=== PATIENT | female | born 1965 | race Caucasian/White ===

== ENCOUNTER 2016-06-29 03:41 | Emergency (ER) | payer BC ==
[2016-06-29] MEDS ORDERED: DEXAMETHASONE SOD PHOS INJ 10 MG/1 ML VIAL IM ONE (05:24)
[2016-06-29] MEDS ORDERED: CLINDAMYCIN HCL 150 MG CAPSULE PO ONE (05:24)
[2016-06-29] MEDS ORDERED: HYDROCODONE/ACETAMINOPHEN 5-325 MG 6 TAB/DSPK PO PRN (05:24)
--- NOTE | 2016-06-29 05:35 | ER Document Report ---
ED General - General Chief Complaint: Toothache Stated Complaint: TOOTHACHE Time Seen by Provider: 06/29/16 05:16 Notes: Patient is a pleasant 51-year-old female who presents with complaint of right jaw pain and dental pain. She had a dental abscess in the left side few weeks ago. She is placed on amoxicillin and had tooth pulled. She now has pain and swelling on the right side. She says today she developed some swelling over the right jaw. She cannot went to call her dentist in the morning and therefore she came to the ER due to increasing pain. No difficulty opening or closing her mouth. No difficulty breathing or swallowing. She also complains of a sore spot on her nose. She says it is been bothering her now for several days. TRAVEL OUTSIDE OF THE [place] IN LAST 30 DAYS: No - Related Data Allergies/Adverse Reactions: No Known Allergies Allergy (Verified 06/29/16 03:48) Past Medical History - Social History Smoking Status: Unknown if Ever Smoked Frequency of alcohol use: None Drug Abuse: None Family History: Reviewed & Not Pertinent Patient has suicidal ideation: No Patient has homicidal ideation: No Renal/ Medical History: Denies: Hx Peritoneal Dialysis - Immunizations Hx Diphtheria, Pertussis, Tetanus Vaccination: Yes Review of Systems - Review of Systems Notes: My Normal Review Basic REVIEW OF SYSTEMS: CONSTITUTIONAL : Denies fever, chills, or sweats. Denies recent illness. EENT: Dental pain. Swelling over right jaw. CARDIOVASCULAR: Denies chest pain. RESPIRATORY: Denies cough, cold, or chest congestion. Denies shortness of breath, difficulty breathing, or wheezing. SKIN: Denies rash or skin lesions. NEUROLOGICAL: Denies altered mental status or loss of consciousness. Denies headache. Denies weakness or paralysis or loss of use of either side. Denies problems with gait or speech. Denies sensory or motor loss. ALL OTHER SYSTEMS REVIEWED AND NEGATIVE. Physical Exam - Vital signs Vitals: Temp Pulse Resp BP Pulse Ox 97.9 F 69 20 126/65 H 97 06/29/16 03:47 06/29/16 03:47 06/29/16 03:47 06/29/16 03:47 06/29/16 03:47 - Notes Notes: General Appearance: Well nourished, alert, cooperative, no acute distress, moderate obvious discomfort. Tearful Vitals: reviewed, See vital signs table. Head: no swelling or tenderness to the head Eyes: PERRL, EOMI, Conjuctiva clear Mouth: Patient has what appears to be infected right lower molar. She has some swelling just lateral to the right jaw. There is no swelling below the jaw. She is able to fully open and close her mouth without difficulty. Nose: Small 1 mm open abscess on the medial aspect of the left nare. Appears that this was initially small abscess which is since opened and drained. Some crusting around the area. Throat: No tonsillar inflammation, No airway obstruction, No lymphadenopathy Neck: Supple, no neck tenderness Extremities: strength 5/5 in all extremities, good pulses in all extremities, no swelling or tenderness in the extremities, no edema. Skin: warm, dry, appropriate color, no rash Neuro: speech clear, oriented x 3, normal affect, responds appropriately to questions. Course - Vital Signs Vital signs: Temp Pulse Resp BP Pulse Ox 97.9 F 69 20 126/65 H 97 06/29/16 03:47 06/29/16 03:47 06/29/16 03:47 06/29/16 03:47 06/29/16 03:47 - Transfer of Care Notes: 06/29/16 05:36 Patient has obvious dental abscess. She is swelling along the right mandible that does not extend below the mandible. No evidence of airway compromise. No swelling over the neck. I informed patient she did see a oral surgeon as soon as possible. I have given the number to Dr. hughes. She does have a dentist who she said she would also call in the morning. I informed her that she must return to the ER immediately if she has difficulty opening her mouth, any swelling below the jaw, any difficulty breathing or swallowing, fevers, or she feels the swelling is increasing. Patient agrees with plan and will be discharged home. The small abscess on the medial aspect of the left nose area open and appears to large drain. Clindamycin will help cover against strep or staph. No further treatment needed other than antibiotic at this time. Patient encouraged to return to ER if she has increased swelling in her nose. Dictation of this chart was performed using voice recognition software; therefore, there may be some unintended grammatical errors. 06/29/16 05:38 06/29/16 05:41 Discharge - Discharge Clinical Impression: Dental abscess Condition: Good Disposition: HOME, SELF-CARE Additional Instructions: Dental Infection or Abscess You have an infection, perhaps an abscess (pus formation) of the gum around one of your teeth, which is probably decayed. If there is an abscess, it may drain on its own or it may need to be opened or lanced. Severe swelling or drainage around a tooth usually means a deep dental abscess which usually requires evaluation and treatment by a dentist or oral surgeon. Antibiotics may be prescribed while awaiting dental treatment. If you develop high fever with chills, worsening pain, or increasing swelling in the area, see a dentist or oral surgeon immediately or return to the Emergency Department immediately. Please return to the ER immediately if you have increased swelling, fevers, any swelling below the jaw, difficulty breathing, or if you have difficulty opening your mouth. Please call your dentist or Dr. Hughes (oral surgeon) this am for close follow up. Prescriptions: Clindamycin HCl 300 mg PO ASDIR #56 capsule Hydrocodone/Acetaminophen [[place] 5-325 mg Tablet] 1 tab PO Q4 PRN #12 tablet PRN Reason: For [facility] Pain Forms: Return to Work Referrals: ELIO HUGHES DDS [ACTIVE STAFF] - 06/29/16
[2016-06-29 05:51] VITALS: BP 108/60
== END 2016-06-29 05:43 | disposition home or self-care (01) ==
LOC: ER 03:41
DX: K04.7 Periapical abscess without sinus (principal); R68.84 Jaw pain
CPT/HCPCS: 99282; 96372; J1100

== ENCOUNTER 2017-04-06 06:29 | Emergency (ER) | payer BC ==
[2017-04-06 07:47] LABS: APPEARANCE,URINE SLIGHTLY-CLOUDY; BILIRUBIN,URINE NEGATIVE (NEGATIVE); GLUCOSE, URINE NEGATIVE (NEGATIVE); KETONES,URINE 20 mg/dL (NEGATIVE); LEUKOCYTE ESTERASE,URINE MODERATE (NEGATIVE); NITRITE,URINE NEGATIVE (NEGATIVE); PROTEIN,URINE 30 mg/dL (NEGATIVE); URINE SPECIFIC GRAVITY 1.025
[2017-04-06 07:48] LABS: COLOR,URINE YELLOW
[2017-04-06 08:10] LABS: URINE AMPHETAMINES SCREEN UNCONFIRMED POSITIVE; URINE BARBITURATES SCREEN NEGATIVE; URINE BENZODIAZEPINES SCREEN NEGATIVE; URINE COCAINE SCREEN NEGATIVE; URINE MARIJUANA (THC) SCREEN UNCONFIRMED POSITIVE; URINE METHADONE SCREEN NEGATIVE; URINE PHENCYCLIDINE SCREEN NEGATIVE
[2017-04-06] MEDS ORDERED: LORAZEPAM INJ 2 MG/1 ML VIAL IM ONE (08:35)
--- NOTE | 2017-04-06 09:45 | ER Document Report ---
ED General - General Chief Complaint: Anxiety Stated Complaint: ANXIETY Time Seen by Provider: 04/06/17 07:02 Mode of Arrival: Medic Information source: Patient Notes: 52 years old female presents today with acute anxiety, hyperventilating saying the whole body was aching having some cough largely nonproductive. No fever chills or other constitutional symptoms. TRAVEL OUTSIDE OF THE [place] IN LAST 30 DAYS: No - HPI Onset: Last week Onset/Duration: Gradual Severity: Moderate Context: Her primary care physician has stopped giving her Xanax couple of weeks ago. States that she is having withdrawal symptoms - Related Data Allergies/Adverse Reactions: No Known Allergies Allergy (Verified 06/29/16 03:48) Past Medical History - General Information source: Patient - Social History Smoking Status: Current Every Day Smoker Cigarette use (# per day): Yes Chew tobacco use (# tins/day): Yes Frequency of alcohol use: Occasional Drug Abuse: Marijuana, Methamphetamine Lives with: Alone Family History: Reviewed & Not Pertinent Patient has suicidal ideation: No Patient has homicidal ideation: No Renal/ Medical History: Denies: Hx Peritoneal Dialysis - Immunizations Hx Diphtheria, Pertussis, Tetanus Vaccination: Yes Review of Systems - Review of Systems Constitutional: denies: No symptoms reported, See HPI, Chills, Diaphoresis, Fever, Malaise, Weakness, Other, Weight gain, Weight loss, Recent illness EENT: denies: No symptoms reported, See HPI, Eye pain, Eye discharge, Blurred vision, Tearing, Double vision, Ear pain, Ear discharge, Nose pain, Nose congestion, Nose discharge, Sinus pressure, Sinus discharge, Throat pain, Difficulty swallowing, Throat swelling, Mouth pain, Mouth swelling, Dental problem, Vertigo, Other Cardiovascular: denies: No symptoms reported, See HPI, Chest pain, Palpitations , Heart racing, Orthopnea, Dyspnea, Syncope, Dizziness, Lightheaded, Edema, Other, Paroxysmal Nocturnal Dysp Respiratory: Cough. denies: No symptoms reported, See HPI, Hurts to breathe, Hemoptysis, Short of breath, Sputum, Stridor, Wheezing, Other Gastrointestinal: denies: No symptoms reported, See HPI, Abdomen distended, Abdominal pain, Diarrhea, Nausea, Vomiting, Constipation, Blood streaked bowels , Poor appetite, Poor fluid intake, Blood in vomit, Black stools, Rectal bleeding, Last bowel movement, Fecal incontinence, Other Genitourinary: denies: No symptoms reported, See HPI, Burning, Dysuria, Discharge, Frequency, Flank pain, Hematuria, Incontinence, Pain, Urgency, Retention, Other Musculoskeletal: denies: No symptoms reported, See HPI, Back pain, Gout, Joint pain, Joint swelling, Muscle pain, Muscle stiffness, Neck pain, Deformity, Leg swelling, Ankle swelling, Other Skin: denies: No symptoms reported, See HPI, Change in color, Change in hair/ nails, Dryness, Lesions, Lumps, Rash, Other Hematologic/Lymphatic: denies: No symptoms reported, See HPI, Anemia, Blood clots, Easy bleeding, Easy bruising, Enlarged lymph nodes, Swollen glands, Other Physical Exam - Vital signs Vitals: Temp Pulse Resp BP Pulse Ox 97.7 F 73 30 H 126/51 H 100 04/06/17 06:36 04/06/17 06:36 04/06/17 06:36 04/06/17 06:36 04/06/17 06:36 - Notes Notes: PHYSICAL EXAMINATION: GENERAL: Well-appearing, well-nourished and she is sleeping comfortably before I went into the room, on arrival she was hyperventilating and saying I am going to withdrawal and having pain throughout the body. HEAD: Atraumatic, normocephalic. EYES: Pupils equal round and reactive to light, extraocular movements intact, conjunctiva are normal. ENT: Nares patent, oropharynx clear without exudates. Moist mucous membranes. NECK: Normal range of motion, supple without lymphadenopathy LUNGS: Breath sounds clear to auscultation bilaterally and equal. No wheezes rales or rhonchi. HEART: Regular rate and rhythm without murmurs ABDOMEN: Soft, nontender, nondistended abdomen. No guarding, no rebound. No masses appreciated. Female : deferred Musculoskeletal: Normal range of motion, no pitting or edema. No cyanosis. NEUROLOGICAL: Cranial nerves grossly intact. Normal speech, normal gait. Normal sensory, motor exams PSYCH: Normal mood, normal affect. Anxiety SKIN: Warm, Dry, normal turgor, no rashes or lesions noted. Course - Re-evaluation Re-evalutation: 04/06/17 09:48 Given 1 mg of Ativan patient felt comfortable - Vital Signs Vital signs: Temp Pulse Resp BP Pulse Ox 97.7 F 73 30 H 126/51 H 100 04/06/17 06:36 04/06/17 06:36 04/06/17 06:36 04/06/17 06:36 04/06/17 06:36 - Laboratory Laboratory results interpreted by me: 04/06/17 07:18 Urine Protein 30 H Urine Ketones 20 H Urine Urobilinogen 2.0 H Ur Leukocyte Esterase MODERATE H Discharge - Discharge Clinical Impression: Anxiety, Cough Condition: Fair Instructions: Anxiety ([facility]) Prescriptions: Alprazolam [Xanax 0.5 mg Tablet] 0.5 mg PO BID PRN #20 tablet PRN Reason: Azithromycin [Zithromax 250 mg Tablet] 250 mg PO ASDIR PRN #6 tablet PRN Reason:
[2017-04-06 09:58] VITALS: BP 113/73
== END 2017-04-06 10:05 | disposition home or self-care (01) ==
LOC: ER 06:29
DX: F41.9 Anxiety disorder, unspecified (principal); R05 Cough; F17.210 Nicotine dependence, cigarettes, uncomplicated; F12.10 Cannabis abuse, uncomplicated; F15.10 Other stimulant abuse, uncomplicated
CPT/HCPCS: 99284; 96372; 81001; 80307; J2060